=== PATIENT | female | born 1985 | race African-American/Black ===

== ENCOUNTER 2018-06-16 19:14 | Emergency (ER) | payer OTHER ==
[~2018-06-16] VITALS: Ht 167.6 cm; Wt 68.0 kg
[2018-06-16] MEDS ORDERED: IBUPROFEN 600 MG TABLET PO ONE (19:30)
[2018-06-16] MEDS ORDERED: PENICILLIN G BENZATHINE 2.4 MMU/4 ML DISP.SYRIN IM ONE ×2 (19:30→19:32)
[2018-06-16] MEDS ORDERED: IBUPROFEN 600 MG TABLET ONE (19:32)
--- NOTE | 2018-06-16 19:38 | NUR ---
Patient discharged to home in stable conditon. Written and verbal after care instructions given. Patient verbalizes understanding of instructions.
== END 2018-06-16 19:43 | disposition home or self-care (01) ==
LOC: ER 19:15
DX: J02.9 Acute pharyngitis, unspecified (principal)
CPT/HCPCS: A4663

== ENCOUNTER 2018-08-10 00:17 | Emergency (ER) | payer OTHER ==
[~2018-08-10] VITALS: Ht 170.2 cm; Wt 92.1 kg
[2018-08-10] MEDS ORDERED: ACET-2605 PO (00:23)
--- NOTE | 2018-08-10 00:25 | NUR ---
Pt. ambulated into ED w/ c/o fever x 4 days, A/Ox4, RR even and unlabored, speaks in clear and complete sentences,
--- NOTE | 2018-08-10 00:42 | NUR ---
Urine specimen collected and sent to lab, dark yellow/mp, no blood clots noted,
[2018-08-10 00:58] LABS: *BILIRUBIN,URIN 2+ (NEGATIVE); *BLOOD, URINE 2+ (NEGATIVE); *COLOR,URINE YELLOW (YELLOW); *KETONES,URINE 4+ (NEGATIVE); *UROBILINOGEN,URINE >=8.0 E.U./dl (NORMAL); LEUKOCYTE ESTERASE ,URINE TRACE (NEGATIVE); NITRITE, URINE NEGATIVE (NEGATIVE); PH,URINE 6.5 (5.0-8.0); UGLUCOSE NEGATIVE (NEGATIVE)
[2018-08-10 01:04] LABS: *CLARITY,URINE HAZY (CLEAR)
[2018-08-10 01:06] LABS: *URINE HCG, QUAL NEGATIVE (NEGATIVE); BACTERIA,URINE MODERATE /HPF (NONE SEEN); SQUAMOUS EPITHELIAL CELL,UR MANY /HPF (NONE SEEN)
[2018-08-10] MEDS ORDERED: IV NORMAL SALINE 1000 ML BAG IV ONE ×3 (01:15→04:15)
--- NOTE | 2018-08-10 01:29 | NUR ---
forestry technician. at bedside for CXR,
--- NOTE | 2018-08-10 01:38 | NUR ---
Phleb. tech. at bedside for blood culture draw
[2018-08-10 01:48] LABS: BASOPHILS % (AUTO) 0.1 % (0.0-2.0); EOSINOPHILS % (AUTO) 0.1 % (0.0-7.0); HEMATOCRIT 39.2 % (31.2-41.9); HEMOGLOBIN 13.3 g/dL (10.9-14.3); LYMPHOCYTES # (AUTO) 0.9 K/uL (20.0-40.0); LYMPHOCYTES % (AUTO) 9.6 % (20.5-51.5); MEAN CORPUSCULAR HEMOGLOBIN 28.8 uug (24.7-32.8); MEAN CORPUSCULAR HGB CONC 34 g/dL (32.3-35.6); MEAN CORPUSCULAR VOLUME 85.3 fL (75.5-95.3); MONOCYTES # (AUTO) 0.8 K/uL (2.0-10.0); MONOCYTES % (AUTO) 9.1 % (0.0-11.0); NEUTROPHILS # (AUTO) 7.2 K/uL (1.8-8.9); NEUTROPHILS % (AUTO) 81.1 % (38.5-71.5); PLATELET COUNT (AUTO) 163 K/uL (179-408); WHITE BLOOD COUNT (AUTO) 8.9 K/uL (3.8-11.8)
--- NOTE | 2018-08-10 01:58 | NUR ---
IV fluids infusing - patent - no s/s infiltration/phlebitis, pt. given crackers and juice, bed in low position, NAD
[2018-08-10 02:04] LABS: BILIRUBIN,DIRECT 0.7 mg/dL (0.0-0.2); BILIRUBIN,TOTAL 1.4 mg/dL (0.2-1.0); CREATININE 0.9 mg/dL (0.6-1.3); TOTAL PROTEIN, SERUM 7.2 g/dL (6.4-8.2)
--- NOTE | 2018-08-10 02:25 | NUR ---
Pt. up to use restroom - ambulates w/ steady gait,
[2018-08-10 02:39] LABS: POTASSIUM 2.8 mmol/L (3.5-5.1)
[2018-08-10] MEDS ORDERED: POTASSIUM BICARBONATE/CIT AC 25 MEQ TABLET.EFF PO ONE (02:45)
[2018-08-10] MEDS ORDERED: POTASSIUM BICARBONATE/CIT AC 25 MEQ TABLET.EFF ONE (02:55)
--- NOTE | 2018-08-10 03:05 | NUR ---
Phleb. tech. at bedside for lactic acid blood draw,
--- NOTE | 2018-08-10 03:39 | NUR ---
Pt. resting in bed w/ eyes closed, IV fluids in fusing - IV patent - no s/s infiltration/phlebitis,
[2018-08-10] MEDS ORDERED: CEFTRIAXONE 1 G in IV DEXTROSE 5% 50 ML IV ONE (04:15)
[2018-08-10] MEDS ORDERED: POTASSIUM CHLORIDE 50 ML IV SCH (04:15)
[2018-08-10] MEDS ORDERED: POTASSIUM CHLORIDE 50 ML ONE (04:27)
--- NOTE | 2018-08-10 05:14 | NUR ---
KCl IV stopped at 0514
--- NOTE | 2018-08-10 05:45 | NUR ---
Patient discharged to home in stable conditon. Written and verbal after care instructions given. Patient verbalizes understanding of instructions. Pt. d/c w/ prescription per MD order, d/c papers signed, all belongings w/ pt., ID band/IV removed, ambulated off unit w/ steady gait accompanied by male friend, TITO
[2018-08-12 12:06] LABS: HEPATITIS A AB, IgM Negative (Negative); HEPATITIS A AB, TOTAL Negative (Negative); HEPATITIS B SURFACE AB Reactive (.); HEPATITIS B SURFACE AG Negative (Negative)
[2018-08-17 03:07] LABS: HEPATITIS Be ANTIGEN Negative (Negative)
== END 2018-08-10 05:51 | disposition home or self-care (01) ==
LOC: ER 00:19
DX: N39.0 Urinary tract infection, site not specified (principal); E87.6 Hypokalemia; R94.5 Abnormal results of liver function studies; Z79.899 Other long term (current) drug therapy
CPT/HCPCS: 36415; 71045; 80048; 80076; 81000; 81001; 83605; 83735; 84703; 85025; 86403; 86704; 86705; 86706; 86708; 86709; 86803; 87040 ×2; 87070; 87077; 87086; 87186; 87340; 87350; 93005; 96365; 96368; 99284; J0696; J3480; J7060; A4663; J7030

== ENCOUNTER 2019-02-25 22:54 | Emergency (ER) | payer MEDICAID, OTHER ==
[~2019-02-25] VITALS: Ht 170.2 cm; Wt 90.7 kg
[~2019-02-25 22:54] MED LIST: ACET-2605 PO
--- NOTE | 2019-02-25 23:27 | NUR ---
Dr Velez into eval patient.
[2019-02-25] MEDS ORDERED: BENZONATATE 100 MG CAPSULE ONE (23:36)
[2019-02-25] MEDS ORDERED: ALBUTEROL SULFATE 2.5 MG/3 ML NEBU ONE (23:40)
[2019-02-25] MEDS ORDERED: ALBUTEROL SULFATE 2.5 MG/3 ML NEBU NEB ONE (23:45)
[2019-02-25] MEDS ORDERED: BENZONATATE 100 MG CAPSULE PO ONE (23:45)
--- NOTE | 2019-02-25 23:55 | NUR ---
Breathing treatment done. Noted productive cough, O2SAT 99%- 100%
[2019-02-26] MEDS ORDERED: predniSONE 50 MG TABLET ONE (00:07)
[2019-02-26] MEDS ORDERED: predniSONE 10 MG TABLET ONE (00:07)
[2019-02-26] MEDS ORDERED: ALBUTEROL SULFATE 2.5 MG/3 ML NEBU ONE ×2 (00:14→01:22)
[2019-02-26] MEDS ORDERED: predniSONE 20 MG TABLET PO ONE (00:15)
[2019-02-26] MEDS ORDERED: ALBUTEROL SULFATE 2.5 MG/3 ML NEBU NEB ONE ×2 (00:15→01:30)
--- NOTE | 2019-02-26 01:03 | NUR ---
POWDERER AT BEDSIDE
--- NOTE | 2019-02-26 01:20 | NUR ---
SECOND ORDER OF CONTINUOUS BREATHING TX. RT AT BEDSIDE
[2019-02-26] MEDS ORDERED: IPRATROPIUM BROMIDE 0.5 MG/2.5 ML NEBU ONE (01:22)
[2019-02-26] MEDS ORDERED: IPRATROPIUM BROMIDE 0.5 MG/2.5 ML NEBU NEB ONE (01:30)
--- NOTE | 2019-02-26 02:29 | NUR ---
PT FINISHED BREATHING TX. STILL WITH EXPIRATORY WHEEZES ON THE L LUNGFIELD (UPPER AND LOWER) PT STATES GREAT IMPROVEMENT AFTER THIS TREATMENT O2SAT AT 97% RA
--- NOTE | 2019-02-26 02:43 | NUR ---
Patient discharged to home in stable conditon. Written and verbal after care instructions given. Patient verbalizes understanding of instructions. AMBULATORY W/ STABLE GAIT ALL BELONGINGS W/ PT
[2019-02-26 02:51] VITALS: BP 127/80
== END 2019-02-26 02:51 | disposition home or self-care (01) ==
LOC: ER 22:56
DX: J40 Bronchitis, not specified as acute or chronic (principal); J98.01 Acute bronchospasm; Z79.899 Other long term (current) drug therapy
CPT/HCPCS: 71045; 94640; 94644; 94645; 99285; J7512 ×2; A4663; J3590

== ENCOUNTER 2019-03-03 01:07 | Emergency (ER) | payer SELFPAY ==
[~2019-03-03] VITALS: Ht 170.2 cm; Wt 90.7 kg
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
[2019-03-03] MEDS ORDERED: IPRATROPIUM BROMIDE 0.5 MG/2.5 ML NEBU NEB ONE (02:00)
[2019-03-03] MEDS ORDERED: ALBUTEROL SULFATE 2.5 MG/3 ML NEBU NEB ONE (02:00)
[2019-03-03] MEDS ORDERED: AZITHROMYCIN 250 MG TABLET PO ONE (02:00)
[2019-03-03] MEDS ORDERED: ALBUTEROL SULFATE 2.5 MG/3 ML NEBU ONE (02:01)
[2019-03-03] MEDS ORDERED: IPRATROPIUM BROMIDE 0.5 MG/2.5 ML NEBU ONE (02:02)
[2019-03-03] MEDS ORDERED: AZITHROMYCIN 250 MG TABLET ONE (02:29)
[2019-03-03 02:37] VITALS: BP 155/89
--- NOTE | 2019-03-03 02:37 | NUR ---
Patient discharged to home in stable conditon. Written and verbal after care instructions given. Patient verbalizes understanding of instructions. Patient ambulated with stable gait.
== END 2019-03-03 02:38 | disposition home or self-care (01) ==
LOC: ER 01:08
DX: J40 Bronchitis, not specified as acute or chronic (principal); J98.01 Acute bronchospasm; Z79.899 Other long term (current) drug therapy
CPT/HCPCS: A4663; J3590; Q0144

== ENCOUNTER 2019-07-30 13:10 | Emergency (ER) | payer MEDICAID, OTHER ==
[~2019-07-30] VITALS: Ht 170.2 cm; Wt 90.7 kg
--- NOTE | 2019-07-30 13:46 | NUR ---
MD@[email or web address], medical screening exam in progress
[2019-07-30 13:51] LABS: *URINE HCG, QUAL NEGATIVE (NEGATIVE)
[2019-07-30] MEDS ORDERED: HYDROMORPHONE 1 MG/1 ML DISP.SYRIN IV ONE (14:00)
[2019-07-30] MEDS ORDERED: HYDROMORPHONE 1 MG/1 ML DISP.SYRIN ONE (14:00)
[2019-07-30] MEDS ORDERED: KETOROLAC TROMETHAMINE 15 MG INJ IVP ONE (14:00)
[2019-07-30] MEDS ORDERED: IV NORMAL SALINE 1000 ML BAG IV ONE (14:00)
[2019-07-30] MEDS ORDERED: KETOROLAC TROMETHAMINE 30 MG INJ ONE (14:00)
[2019-07-30 14:09] LABS: *CLARITY,URINE CLOUDY (CLEAR); *COLOR,URINE DARK YELLOW (YELLOW)
[2019-07-30 14:10] LABS: LEUKOCYTE ESTERASE ,URINE MODERATE (NEGATIVE)
[2019-07-30 14:11] LABS: NITRITE, URINE POSITIVE (NEGATIVE)
[2019-07-30 14:13] LABS: *BLOOD, URINE 3+ (NEGATIVE); *KETONES,URINE SMALL (NEGATIVE)
[2019-07-30 14:18] LABS: *BILIRUBIN,URIN LARGE (NEGATIVE); UGLUCOSE NEGATIVE (NEGATIVE)
[2019-07-30 14:19] LABS: WBC,URINE TNTC /HPF (0-3)
[2019-07-30 14:20] LABS: BACTERIA,URINE FEW /HPF (NONE SEEN); MUCUS,URINE NONE SEEN /LPF (0-FEW); SQUAMOUS EPITHELIAL CELL,UR MANY /HPF (NONE SEEN)
[2019-07-30 14:37] LABS: BASOPHILS % (AUTO) 0.2 % (0.0-2.0); EOSINOPHILS % (AUTO) 0.4 % (0.0-7.0); HEMATOCRIT 42.4 % (31.2-41.9); HEMOGLOBIN 14.2 g/dL (10.9-14.3); LYMPHOCYTES # (AUTO) 0.7 K/uL (20.0-40.0); LYMPHOCYTES % (AUTO) 9.5 % (20.5-51.5); MEAN CORPUSCULAR HEMOGLOBIN 29.5 uug (24.7-32.8); MEAN CORPUSCULAR HGB CONC 34 g/dL (32.3-35.6); MEAN CORPUSCULAR VOLUME 88.1 fL (75.5-95.3); MONOCYTES # (AUTO) 0.5 K/uL (2.0-10.0); MONOCYTES % (AUTO) 6.4 % (0.0-11.0); NEUTROPHILS # (AUTO) 6.1 K/uL (1.8-8.9); NEUTROPHILS % (AUTO) 83.5 % (38.5-71.5); PLATELET COUNT (AUTO) 148 K/uL (179-408); RED BLOOD CELL COUNT(AUTO) 4.82 MIL/uL (3.63-4.92); WHITE BLOOD COUNT (AUTO) 7.4 K/uL (3.8-11.8)
[2019-07-30] MEDS ORDERED: CEFTRIAXONE 2 G in IV DEXTROSE 5% 100 ML IV ONE (14:45)
[2019-07-30] MEDS ORDERED: CEFTRIAXONE 1 G VIAL ONE (14:47)
[2019-07-30 14:50] LABS: POTASSIUM 3.4 mmol/L (3.5-5.1)
[2019-07-30 14:54] LABS: BILIRUBIN,DIRECT 1.7 mg/dL (0.0-0.2); BILIRUBIN,TOTAL 2.4 mg/dL (0.2-1.0); TOTAL PROTEIN, SERUM 7.2 g/dL (6.4-8.2)
[2019-07-30] MEDS ORDERED: POTASSIUM CHLORIDE 20 MEQ TAB.PRT.SR PO ONE (15:15)
[2019-07-30] MEDS ORDERED: POTASSIUM CHLORIDE 20 MEQ TAB.PRT.SR ONE (15:41)
--- NOTE | 2019-07-30 15:50 | NUR ---
IV removed. Catheter intact and site benign. Pressure and 4x4 gauze applied to site. No bleeding noted. Patient discharged to home in stable condition and steady gait. Written and verbal after care instructions given to patient. Patient verbalizes understanding of instructions. Stressed follow up or return to ER for worsening s/s.
== END 2019-07-30 15:51 | disposition home or self-care (01) ==
LOC: ER 13:11
DX: N10 Acute pyelonephritis (principal); E80.6 Other disorders of bilirubin metabolism; R94.5 Abnormal results of liver function studies; Z87.440 Personal history of urinary (tract) infections; Z82.49 Family history of ischemic heart disease and other diseases of the circulatory system; R74.8 Abnormal levels of other serum enzymes
CPT/HCPCS: 36415; 83690; 84703; 85025; 87040; 87077; 87086; A4663; J0696; J1170; J1885; J7030; J7060

== ENCOUNTER 2019-08-01 16:55 | Emergency (ER) | payer OTHER ==
[~2019-08-01] VITALS: Ht 170.2 cm; Wt 90.7 kg
[2019-08-01] MEDS ORDERED: CIPR-262 PO (17:09)
[2019-08-01] MEDS ORDERED: ACET-2154 PO (17:09)
[2019-08-01] MEDS ORDERED: CEFTRIAXONE 1 G in IV DEXTROSE 5% 50 ML IV ONE (17:15)
[2019-08-01] MEDS ORDERED: ONDANSETRON 4 MG/2 ML VIAL IV ONE (17:15)
[2019-08-01] MEDS ORDERED: KETOROLAC TROMETHAMINE 30 MG INJ IVP ONE (17:15)
[2019-08-01] MEDS ORDERED: IV NORMAL SALINE 1000 ML BAG IV ONE (17:15)
[2019-08-01 17:33] LABS: BASOPHILS % (AUTO) 0.2 % (0.0-2.0); EOSINOPHILS % (AUTO) 0.3 % (0.0-7.0); HEMATOCRIT 42.1 % (31.2-41.9); HEMOGLOBIN 13.9 g/dL (10.9-14.3); LYMPHOCYTES # (AUTO) 0.7 K/uL (20.0-40.0); LYMPHOCYTES % (AUTO) 8.2 % (20.5-51.5); MEAN CORPUSCULAR HGB CONC 33 g/dL (32.3-35.6); MEAN CORPUSCULAR VOLUME 87.7 fL (75.5-95.3); MONOCYTES # (AUTO) 0.7 K/uL (2.0-10.0); MONOCYTES % (AUTO) 8.7 % (0.0-11.0); NEUTROPHILS % (AUTO) 82.6 % (38.5-71.5); PLATELET COUNT (AUTO) 141 K/uL (179-408); WHITE BLOOD COUNT (AUTO) 8.5 K/uL (3.8-11.8)
[2019-08-01] MEDS ORDERED: KETOROLAC TROMETHAMINE 30 MG INJ ONE (17:33)
[2019-08-01] MEDS ORDERED: ONDANSETRON 4 MG/2 ML VIAL ONE (17:34)
[2019-08-01] MEDS ORDERED: CEFTRIAXONE /D5W 50ML IVPB **ER PYXIS IV ONE (17:35)
[2019-08-01 17:40] LABS: CREATININE 1.1 mg/dL (0.6-1.3); POTASSIUM 3.1 mmol/L (3.5-5.1)
[2019-08-01 17:45] LABS: BILIRUBIN,DIRECT 1.5 mg/dL (0.0-0.2); BILIRUBIN,TOTAL 1.9 mg/dL (0.2-1.0); TOTAL PROTEIN, SERUM 7.2 g/dL (6.4-8.2)
--- NOTE | 2019-08-01 18:03 | NUR ---
pt is in room #2b. dr Velez evaluated the pt.
[2019-08-01 18:06] LABS: *BILIRUBIN,URIN 2+ (NEGATIVE); *BLOOD, URINE 2+ (NEGATIVE); *CLARITY,URINE SLIGHTLY CLOUDY (CLEAR); *COLOR,URINE Orange (YELLOW); *KETONES,URINE 2+ (NEGATIVE); *UROBILINOGEN,URINE >=8.0 E.U./dl (NORMAL); LEUKOCYTE ESTERASE ,URINE NEGATIVE (NEGATIVE); NITRITE, URINE POSITIVE (NEGATIVE); UGLUCOSE TRACE (NEGATIVE)
[2019-08-01 18:15] LABS: BACTERIA,URINE FEW /HPF (NONE SEEN); MUCUS,URINE MODERATE /LPF (0-FEW); SQUAMOUS EPITHELIAL CELL,UR MANY /HPF (NONE SEEN)
--- NOTE | 2019-08-01 18:32 | NUR ---
PT WAS D/C'D TO HOME. D/C INSTRUCTIONS GIVEN TO THE PT BY DR CRUM.
[2019-08-01 18:34] VITALS: BP 129/77
== END 2019-08-01 18:35 | disposition home or self-care (01) ==
LOC: ER 16:55
DX: N12 Tubulo-interstitial nephritis, not specified as acute or chronic (principal); B96.20 Unspecified Escherichia coli [E. coli] as the cause of diseases classified elsewhere; E87.6 Hypokalemia; R11.10 Vomiting, unspecified
CPT/HCPCS: 36415; 80048; 80076; 81001; 83605; 85025; 87040 ×2; 87086; 96365; 96375; 99284; J0696; J1885; J2405; A4663; J7030

== ENCOUNTER 2019-08-21 05:46 | Emergency (ER) | payer OTHER ==
[~2019-08-21] VITALS: Ht 170.2 cm; Wt 86.6 kg
[~2019-08-21 05:46] MED LIST changes: +ACET-2154 PO; -ACET-2605 PO; +CIPR-262 PO
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
--- NOTE | 2019-08-21 05:57 | NUR ---
Dr. Calvin at bedside for MSE.
[2019-08-21] MEDS ORDERED: LIDOCAINE 1%-EPI 1:100,000 20 ML VIAL ONE (06:07)
[2019-08-21] MEDS ORDERED: TDAP DIPH,PERTUSS,TET VAC/PF 0.5 ML DISP.SYRIN IM ONE ×2 (06:15)
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
[2019-08-21] MEDS ORDERED: NEOMY/BACITRA/POLYMYXIN B OINT UD PACKET TP ONE ×2 (07:12→07:30)
--- NOTE | 2019-08-21 07:22 | NUR ---
Patient discharged to home in stable condition. Written and verbal after care instructions given. Patient verbalizes understanding of instructions. Stressed follow up or return to ER for worsening s/s. Pt ambulated out of the ER with steady gait. All belongings with pt.
[2019-08-21 07:23] VITALS: BP 100/86
== END 2019-08-21 07:22 | disposition home or self-care (01) ==
LOC: ER 05:49
DX: S51.811A Laceration without foreign body of right forearm, initial encounter (principal); Y04.2XXA Assault by strike against or bumped into by another person, initial encounter; W01.110A Fall on same level from slipping, tripping and stumbling with subsequent striking against sharp glass, initial encounter; Y92.89 Other specified places as the place of occurrence of the external cause
CPT/HCPCS: 12004; 73090; 90471; 90715; 99284; J3490; A4217; A4663

== ENCOUNTER 2019-09-09 14:05 | Emergency (ER) | payer OTHER ==
[~2019-09-09] VITALS: Ht 170.2 cm; Wt 86.2 kg
--- NOTE | 2019-09-09 14:36 | NUR ---
PT WAS EVALUATED BY DR GRAHAM. PT WAS D/C'd TO HOME . D/C INSTRUCTIONS GIVEN TO THE PT BY DR GRAHAM.
[2019-09-09 14:37] VITALS: BP 138/80
== END 2019-09-09 14:37 | disposition home or self-care (01) ==
LOC: ER 14:05
DX: S51.811D Laceration without foreign body of right forearm, subsequent encounter (principal); W45.8XXD Other foreign body or object entering through skin, subsequent encounter
CPT/HCPCS: A4663

== ENCOUNTER 2020-12-26 23:18 | Emergency (ER) | payer OTHER ==
[~2020-12-26] VITALS: Ht 170.2 cm; Wt 83.9 kg
[2020-12-27] MEDS ORDERED: OXYCODONE/APAP 5-325 MG TABLET PO ONE
[2020-12-27] MEDS ORDERED: KETOROLAC TROMETHAMINE 60 MG INJ IM ONE ×2 (00:06)
[2020-12-27] MEDS ORDERED: OXYCODONE/APAP 5-325 MG TABLET ONE (00:07)
[2020-12-27] MEDS ORDERED: OXYC-128 PO (00:39)
[2020-12-27 01:36] VITALS: BP 156/105
--- NOTE | 2020-12-27 01:38 | NUR ---
Patient discharged to home in stable condition. Written and verbal after care instructions given. Patient verbalizes understanding of instructions. Stressed follow up or return to ER for worsening s/s. Patient able to walk with crutches and knee immobilizer. No signs of acute distress noted. VSS. Instructed not to drive.
== END 2020-12-27 01:39 | disposition home or self-care (01) ==
LOC: ER 23:21
DX: S83.92XA Sprain of unspecified site of left knee, initial encounter (principal); X50.9XXA Other and unspecified overexertion or strenuous movements or postures, initial encounter; Y93.41 Activity, dancing; Y92.89 Other specified places as the place of occurrence of the external cause; R03.0 Elevated blood-pressure reading, without diagnosis of hypertension
CPT/HCPCS: 96372; 99283; J1885; A4663

== ENCOUNTER 2021-06-09 21:10 | Emergency (ER) | payer OTHER ==
[~2021-06-09] VITALS: Ht 170.2 cm; Wt 90.3 kg
[~2021-06-09 21:10] MED LIST changes: -ACET-2154 PO; -CIPR-262 PO; +OXYC-128 PO
--- NOTE | 2021-06-09 21:55 | NUR ---
patient walked into ER with steady gait c/o neck pain since Sunday. Patient is A/Ox4, no SOB, denies GOMEZ, no n/v. Patient is accompanied by S.O.
[2021-06-09 22:26] LABS: *URINE HCG, QUAL NEGATIVE (NEGATIVE)
[2021-06-09] MEDS ORDERED: CYCLOBENZAPRINE HCL 10 MG TABLET ONE (22:35)
[2021-06-09] MEDS ORDERED: IBUPROFEN 800 MG TABLET ONE (22:35)
[2021-06-09] MEDS ORDERED: CYCLOBENZAPRINE HCL 10 MG TABLET PO ONE (22:45)
[2021-06-09] MEDS ORDERED: IBUPROFEN 800 MG TABLET PO ONE (22:45)
[2021-06-09] MEDS ORDERED: CYCL10TA9 PO (23:51)
[2021-06-09] MEDS ORDERED: IBUP800T54 PO (23:51)
--- NOTE | 2021-06-09 23:57 | NUR ---
Patient discharged to home in stable condition. Written and verbal after care instructions given. Patient verbalizes understanding of instructions. Stressed follow up or return to ER for worsening s/s. Patient is A/Ox4, no CP, no SOB, no distress noted. Patient is accompanied by S.O.
[2021-06-10 00:01] VITALS: BP 128/72
== END 2021-06-09 23:57 | disposition home or self-care (01) ==
LOC: ER 21:12
DX: M54.2 Cervicalgia (principal); R03.0 Elevated blood-pressure reading, without diagnosis of hypertension; Z82.49 Family history of ischemic heart disease and other diseases of the circulatory system
CPT/HCPCS: 84703; A4663

== ENCOUNTER 2021-08-31 15:25 | Emergency (ER) | payer OTHER ==
[~2021-08-31] VITALS: Ht 170.2 cm; Wt 81.6 kg
[~2021-08-31 15:25] MED LIST changes: +CYCL10TA9 PO; +IBUP800T54 PO
[2021-08-31] MEDS ORDERED: ACETAMINOPHEN 325 MG TABLET ONE (16:11)
[2021-08-31] MEDS ORDERED: IBUPROFEN 400 MG TABLET ONE (16:12)
[2021-08-31] MEDS ORDERED: ACETAMINOPHEN 325 MG TABLET PO ONE (16:15)
[2021-08-31] MEDS ORDERED: IBUPROFEN 400 MG TABLET PO ONE (16:15)
--- NOTE | 2021-08-31 16:34 | NUR ---
Patient was moved to another room by charge account identification clerk Andrei.
--- NOTE | 2021-08-31 16:37 | NUR ---
Patient discharged to home in stable condition with brisk steady gait. Written and verbal after care instructions given to patient by our nurse discharge planner Sim. Patient verbalized understanding and compliance of instructions. Stressed follow up with primary doctor or return to ER for worsening s/s.
== END 2021-08-31 16:39 | disposition home or self-care (01) ==
LOC: ER 15:25
DX: M79.645 Pain in left finger(s) (principal)
CPT/HCPCS: 73130; A4663

== ENCOUNTER 2021-09-21 16:30 | Emergency (ER) | payer OTHER ==
[~2021-09-21] VITALS: Ht 170.2 cm; Wt 79.4 kg
[2021-09-21] MEDS ORDERED: IPRATROPIUM BROMIDE 0.5 MG/2.5 ML NEBU NEB ONE (17:30)
[2021-09-21] MEDS ORDERED: ALBUTEROL SULFATE 2.5 MG/3 ML NEBU NEB ONE (17:30)
[2021-09-21] MEDS ORDERED: predniSONE 10 MG TABLET PO ONE (17:30)
[2021-09-21] MEDS ORDERED: ALBUTEROL SULFATE 2.5 MG/3 ML NEBU ONE (17:34)
[2021-09-21] MEDS ORDERED: IPRATROPIUM BROMIDE 0.5 MG/2.5 ML NEBU ONE (17:34)
[2021-09-21] MEDS ORDERED: PRED20TA PO (18:32)
[2021-09-21] MEDS ORDERED: ALBU18HF2 INH (18:32)
--- NOTE | 2021-09-21 19:10 | NUR ---
Gave pt RX and d/c instructions, pt verbalized understanding.
== END 2021-09-21 19:12 | disposition home or self-care (01) ==
LOC: ER 16:30
DX: J45.901 Unspecified asthma with (acute) exacerbation (principal); Z20.822 Contact with and (suspected) exposure to COVID-19; Z82.49 Family history of ischemic heart disease and other diseases of the circulatory system
CPT/HCPCS: 71045; A4663; J3590